=== PATIENT | female | born 1990 | race Caucasian/White ===

== ENCOUNTER 2017-03-30 10:36 | Emergency (ER) | payer OTHER ==
[~2017-03-30 10:36] MED LIST: COLACE 100MG C100 MG PO
[2017-03-30 11:33] LABS: HEMOGLOBIN 16.3 gm/dl (12.3-15.3); RED BLOOD COUNT 5.19 M/UL (4.00-5.10); WHITE BLOOD COUNT 14.2 K/UL (4.5-11.0)
[2017-03-30 11:44] LABS: BUN/CREATININE RATIO 17 (0-10)
[2017-07-17] MEDS ORDERED: YAZ 28 TABLET1 EACH PO (07:34)
[2017-07-17] MEDS ORDERED: IBUPROFEN800 MG PO (07:35)
[2017-07-18] MEDS ORDERED: COLACE 100MG C100 MG PO (11:01)
[2017-07-18] MEDS ORDERED: IBUPROFEN600 MG PO (11:01)
[2017-07-18] MEDS ORDERED: NORCO 10-325 T1 EACH PO (11:02)
== END 2017-03-30 14:11 | disposition left against medical advice (07) ==
LOC: ER1 10:36
PROVIDERS: Emergency Medicine
DX: K56.7 Ileus, unspecified (principal)
CPT/HCPCS: 36415; 80053; 81001; 83690; 84703; 85025; 87086; 96365; 96375; 99284; J1885; J2405; J7030; J7050; Q9962

== ENCOUNTER → 2021-09-07 | Outpatient (CLI) | payer BC ==
[~2021-09-07] MED LIST changes: +IBUPROFEN600 MG PO; +IBUPROFEN800 MG PO; +NORCO 10-325 T1 EACH PO; +YAZ 28 TABLET1 EACH PO
== END ==
LOC: KOH-I 16:26
DX: J20.9 Acute bronchitis, unspecified (principal); R91.8 Other nonspecific abnormal finding of lung field
CPT/HCPCS: 71046

== ENCOUNTER → 2021-11-27 | Outpatient (CLI) | payer BC | LOC: KOH-I 10:39 | DX: J20.9 Acute bronchitis, unspecified (principal) | CPT/HCPCS: 71046 ==